=== PATIENT | female | born 1985 | race Two or more races ===

== ENCOUNTER → 2018-08-19 | Outpatient (CLI) | payer BC | LOC: BMCIMAGING 07:34 | PROVIDERS: ATTEND Obstetrics & Gynecology Gynecology | DX: R10.2 Pelvic and perineal pain (principal); Z97.5 Presence of (intrauterine) contraceptive device ==

== ENCOUNTER → 2018-09-04 | Outpatient (CLI) | payer BC | LOC: BMCIMAGING 15:13 | PROVIDERS: ATTEND Allergy & Immunology Allergy | DX: Z13.820 Encounter for screening for osteoporosis (principal); Z79.52 Long term (current) use of systemic steroids ==